=== PATIENT | female | born 2000 | race Caucasian/White ===

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

== ENCOUNTER 2023-05-25 02:58 | Emergency (ER) | payer SELFPAY ==
[~2023-05-25] VITALS: Ht 165.1 cm; Wt 69.7 kg
[~2023-05-25 02:58] MED LIST changes: +IBU600 MG PO; +PERCOCET 325 MG1 TA2 PO; +ZOFRAN ODT4 MG PO
[2023-05-25 03:05] VITALS: TEMP 98.3
[2023-05-25 03:33] LABS: BASO # 0.1 K/mm3 (0.0-0.2); BASO % 0.4 % (0.0-2.0); EOS # 0.2 K/mm3 (0.0-0.7); EOS % 0.8 % (0.0-4.0); GRAN # 17.4 K/mm3 (1.4-6.5); GRAN % 81.6 % (42.2-75.2); HEMATOCRIT 45.1 % (35.0-45.0); HEMOGLOBIN 14.1 g/dl (12.0-15.0); LYMPH # 2.5 K/mm3 (1.2-3.4); LYMPH % 11.6 % (20.0-51.0); MEAN CELL VOLUME 78 fl (80.0-95.0); MEAN CORPUSCULAR HEMOGLOBIN 25 pg (26-32); MEAN CORPUSCULAR HGB CONC 31 g/dl (33.0-37.0); MEAN PLATELET VOLUME 10.1 fl (7.4-10.4); MONO # 1.1 K/mm3 (0.1-0.6); MONO % 5.2 % (1.7-9.3); PLATELET COUNT 434 K/mm3 (130-400); RED BLOOD COUNT 5.75 M/mm3 (4.10-5.30); REDCELL DISTRIBUTION WIDTH-CV 15.9 % (11.5-14.5)
[2023-05-25 03:51] LABS: ALBUMIN 4.8 gm/dL (3.5-5.0); BILIRUBIN,TOTAL 0.6 mg/dL (0.2-1.2); CALCIUM 10.5 mg/dL (8.4-10.2); CREATININE, serum 0.99 mg/dL (0.57-1.11); POTASSIUM 4.2 mmol/L (3.5-4.5); TOTAL PROTEIN 8.7 gm/dL (6.2-8.1)
[2023-05-25 04:41] LABS: COLLECTION METHOD CLEAN CATCH
[2023-05-25 04:55] LABS: SQUAMOUS EPITHELIAL None Seen /hpf (0-10); URINE BACTERIA None Seen /hpf (NONE SEEN); URINE RBC None Seen /hpf (0-2)
[2023-05-25 04:59] LABS: PH 5.5 (5.0-8.5); URINE APPEARANCE Clear (CLEAR/HAZY); URINE BLOOD TRACE-INTACT (NEGATIVE); URINE COLOR Yellow (YELLOW); URINE GLUCOSE Negative (NEGATIVE); URINE KETONE 3+ (NEGATIVE); URINE NITRATE Negative (NEGATIVE); URINE PROTEIN(semi-quant) 2+ (NEGATIVE)
[2023-05-25 05:13] LABS: TRICYCLIC ANTIDEPRESS URINE NEGATIVE
[2023-05-25] MEDS ORDERED: ZOFRAN ODT4 MG PO (05:53)
[2023-05-25 06:00] VITALS: BP 118/75; PULSE 80
== END 2023-05-25 06:00 | disposition home or self-care (01) ==
LOC: COL.ER 02:58
PROVIDERS: Emergency Medicine
DX: K52.9 Noninfective gastroenteritis and colitis, unspecified (principal); E86.0 Dehydration; R00.0 Tachycardia, unspecified; D72.829 Elevated white blood cell count, unspecified; Z28.310 Unvaccinated for COVID-19
CPT/HCPCS: J2405; J7030; Q9967